=== PATIENT | male | born 1955 | race Caucasian/White ===

== ENCOUNTER 2016-07-31 10:19 | Emergency (ER) | payer MEDICARE, OTHER ==
[~2016-07-31] VITALS: Ht 175.3 cm; Wt 72.6 kg
[~2016-07-31 10:19] MED LIST: IBAN150T8 PO; SIMV20TA6 PO
--- NOTE | 2016-07-31 10:43 | NUR ---
mse completed, norco administered, pt then d/c'd home, aci rx x1, pt took all belongings and left on his electric wheelchair.
[2016-07-31 10:45] VITALS: BP 135/92
[2016-07-31] MEDS ORDERED: HYDROCODONE/APAP 10-325 MG TABLET PO ONE (10:45)
[2016-07-31] MEDS ORDERED: HYDROCODONE/APAP 10-325 MG TABLET ONE (10:47)
== END 2016-07-31 10:45 | disposition home or self-care (01) ==
LOC: ER 10:19
DX: S20.212A Contusion of left front wall of thorax, initial encounter (principal); S20.211A Contusion of right front wall of thorax, initial encounter; F10.20 Alcohol dependence, uncomplicated; X58.XXXA Exposure to other specified factors, initial encounter; Y93.89 Activity, other specified; Y99.8 Other external cause status; Y92.89 Other specified places as the place of occurrence of the external cause
CPT/HCPCS: 99283; A4663

== ENCOUNTER 2020-06-02 19:43 | Emergency (ER) | payer MEDICARE, OTHER ==
[~2020-06-02] VITALS: Ht 175.3 cm; Wt 72.6 kg
[~2020-06-02 19:43] MED LIST changes: +IBAN150T21 PO; -IBAN150T8 PO; +SIMV-46 PO; -SIMV20TA6 PO
--- NOTE | 2020-06-02 20:39 | NUR ---
PT WAS EVALUATED BY DR TAMEZ. PT WAS D/C'd TO HOME. D/C INSTRUCTIONS GIVEN TO THE PT BY DR TAMEZ.
[2020-06-02 20:41] VITALS: BP 135/79
== END 2020-06-02 20:42 | disposition home or self-care (01) ==
LOC: ER 19:45
DX: R59.0 Localized enlarged lymph nodes (principal); G11.4 Hereditary spastic paraplegia
CPT/HCPCS: A4663

== ENCOUNTER 2021-12-17 14:24 | Emergency (ER) | payer MEDICARE, OTHER ==
[~2021-12-17] VITALS: Ht 170.2 cm; Wt 63.5 kg
[2021-12-17 15:11] LABS: HEMATOCRIT 42.2 % (36.7-47.1); MEAN CORPUSCULAR VOLUME 89.6 fL (73.0-96.2); PLATELET COUNT (AUTO) 247 K/uL (152-348)
[2021-12-17] MEDS ORDERED: KETOROLAC TROMETHAMINE 15 MG INJ IVP ONE (15:15)
[2021-12-17 15:19] LABS: ALANINE AMINOTRANSFERASE 24 U/L (16-63); ALKALINE PHOSPHATASE 52 U/L (50-136); ASPARTATE AMINOTRANSFERASE 11 U/L (15-37); BILIRUBIN,DIRECT < 0.1 mg/dL (0.0-0.2); BILIRUBIN,TOTAL 0.4 mg/dL (0.2-1.0); CARBON DIOXIDE 30 mmol/L (21-32); CHLORIDE 103 mmol/L (98-107); CREATININE 0.9 mg/dL (0.6-1.3); GLUCOSE 123 mg/dL (74-106); LIPASE 86 U/L (73-393); TOTAL PROTEIN, SERUM 7.5 g/dL (6.4-8.2); UREA NITROGEN, BLOOD 17 mg/dL (7-18)
[2021-12-17] MEDS ORDERED: KETOROLAC TROMETHAMINE 15 MG INJ ONE (16:06)
--- NOTE | 2021-12-17 16:14 | NUR ---
Dr. Lopez says ok to give IM for toradol 15 mg.
[2021-12-17 16:22] LABS: *BILIRUBIN,URIN NEGATIVE (NEGATIVE); *BLOOD, URINE NEGATIVE (NEGATIVE); *COLOR,URINE YELLOW (YELLOW); *KETONES,URINE NEGATIVE (NEGATIVE); *UROBILINOGEN,URINE 0.2 E.U./dl (NORMAL); LEUKOCYTE ESTERASE ,URINE NEGATIVE (NEGATIVE); NITRITE, URINE NEGATIVE (NEGATIVE); UGLUCOSE NEGATIVE (NEGATIVE)
[2021-12-17 16:24] LABS: *CLARITY,URINE SLIGHTLY HAZY (CLEAR)
[2021-12-17 16:39] LABS: BACTERIA,URINE NONE SEEN /HPF (NONE SEEN); RBC,URINE NONE SEEN /HPF (0-3); SQUAMOUS EPITHELIAL CELL,UR FEW /HPF (NONE SEEN); URINE AMORPHOUS URATE MODERATE /HPF; WBC,URINE 0-3 /HPF (0-3)
[2021-12-17 17:16] VITALS: BP 126/74
== END 2021-12-17 17:17 | disposition home or self-care (01) ==
LOC: ER 14:24
DX: R10.9 Unspecified abdominal pain (principal); M54.9 Dorsalgia, unspecified; G11.4 Hereditary spastic paraplegia; Z99.3 Dependence on wheelchair; I10 Essential (primary) hypertension
CPT/HCPCS: 99284; 96374; 71045; 80076; 80048; 81001; 83690; 85025; 87086; 36415; J1885; A4663

== ENCOUNTER 2022-05-16 16:04 | Emergency (ER) | payer MEDICARE, OTHER ==
[~2022-05-16] VITALS: Ht 177.8 cm; Wt 72.6 kg
[2022-05-16] MEDS ORDERED: IV NORMAL SALINE 1000 ML BAG IV ONE (16:30)
[2022-05-16 16:33] LABS: HEMATOCRIT 42.5 % (36.7-47.1); MEAN CORPUSCULAR HEMOGLOBIN 30.7 uug (23.8-33.4); MEAN CORPUSCULAR VOLUME 89.5 fL (73.0-96.2); PLATELET COUNT (AUTO) 268 K/uL (152-348)
[2022-05-16 16:35] LABS: *BILIRUBIN,URIN NEGATIVE (NEGATIVE); *BLOOD, URINE NEGATIVE (NEGATIVE); *CLARITY,URINE CLEAR (CLEAR); *COLOR,URINE YELLOW (YELLOW); *KETONES,URINE NEGATIVE (NEGATIVE); *UROBILINOGEN,URINE 0.2 E.U./dl (NORMAL); LEUKOCYTE ESTERASE ,URINE NEGATIVE (NEGATIVE); NITRITE, URINE NEGATIVE (NEGATIVE); PH,URINE 7.5 (5.0-8.0); UGLUCOSE NEGATIVE (NEGATIVE)
--- NOTE | 2022-05-16 16:38 | NUR ---
1st contact with patient:AOx4, calm and breathing easily, NAD, c/o 2 week R flank pains, blood & urine results are pending, for CT scan at this time.
[2022-05-16 16:48] LABS: CREATININE 0.7 mg/dL (0.6-1.3); POTASSIUM 4.1 mmol/L (3.5-5.1)
[2022-05-16 16:54] LABS: BILIRUBIN,DIRECT 0.1 mg/dL (0.0-0.2); BILIRUBIN,TOTAL 0.4 mg/dL (0.2-1.0); TOTAL PROTEIN, SERUM 8.3 g/dL (6.4-8.2)
[2022-05-16] MEDS ORDERED: HYDROCODONE/APAP 5-325MG TABLET ONE (17:51)
[2022-05-16] MEDS ORDERED: HYDROCODONE/APAP 5-325MG TABLET PO ONE (18:00)
--- NOTE | 2022-05-16 18:02 | NUR ---
IV removed. Catheter intact and site benign. Pressure and 4x4 gauze applied to site. No bleeding noted. Patient discharged to home in stable condition using his own electric wheelchair. Written and verbal after care instructions given. Patient verbalized understanding and compliance of instructions. Stressed follow up with primary doctor or return to ER for worsening s/s.
[2022-05-16 18:03] VITALS: BP 120/71
== END 2022-05-16 17:54 | disposition home or self-care (01) ==
LOC: ER 16:04
DX: R10.9 Unspecified abdominal pain (principal); I70.0 Atherosclerosis of aorta; I77.811 Abdominal aortic ectasia; G11.4 Hereditary spastic paraplegia; R03.0 Elevated blood-pressure reading, without diagnosis of hypertension
CPT/HCPCS: 99284; 74176; 96360; 80076; 80048; 81003; 83690; 85025; 36415; J7040; A4663

== ENCOUNTER 2022-12-29 09:51 | Emergency (ER) | payer MEDICARE, OTHER ==
[~2022-12-29] VITALS: Ht 177.8 cm; Wt 72.6 kg
[2022-12-29 11:03] VITALS: BP 135/85; O2SAT 100
== END 2022-12-29 11:03 | disposition home or self-care (01) ==
LOC: ER 09:51
DX: S93.401A Sprain of unspecified ligament of right ankle, initial encounter (principal); G11.4 Hereditary spastic paraplegia; Z90.49 Acquired absence of other specified parts of digestive tract; Z79.899 Other long term (current) drug therapy; W01.0XXA Fall on same level from slipping, tripping and stumbling without subsequent striking against object, initial encounter; Y93.89 Activity, other specified; Y92.89 Other specified places as the place of occurrence of the external cause; Y99.8 Other external cause status
CPT/HCPCS: 73590; 73630; A4663; C1758

== ENCOUNTER 2024-09-12 10:44 | Emergency (ER) | payer MEDICARE, OTHER ==
[~2024-09-12] VITALS: Ht 177.8 cm; Wt 73.5 kg
[2024-09-12 12:23] VITALS: BP 126/80; O2SAT 97
== END 2024-09-12 12:28 | disposition home or self-care (01) ==
LOC: ER 10:44
DX: S42.402A Unspecified fracture of lower end of left humerus, initial encounter for closed fracture (principal); Z88.7 Allergy status to serum and vaccine; Z90.49 Acquired absence of other specified parts of digestive tract; W22.09XA Striking against other stationary object, initial encounter; Y93.89 Activity, other specified; Y92.89 Other specified places as the place of occurrence of the external cause; Y99.8 Other external cause status
CPT/HCPCS: 73070; A4606; A4663

== ENCOUNTER 2024-11-28 17:29 | Emergency (ER) | payer MEDICARE, OTHER ==
[~2024-11-28] VITALS: Ht 177.8 cm; Wt 74.4 kg
[2024-11-28] MEDS ORDERED: ACETAMINOPHEN 500 MG TABLET ONE (19:25)
[2024-11-28] MEDS: ACETAMINOPHEN 500 MG TABLET PO ONE (19:30)
[2024-11-28 20:01] VITALS: BP 127/60
[2024-11-28] MEDS: IV NORMAL SALINE 1000 ML BAG IV ONE (20:05)
[2024-11-28 20:12] LABS: PLATELET COUNT (AUTO) 197 K/uL (152-348); RED BLOOD CELL COUNT(AUTO) 4.96 MIL/uL (4.06-5.63); RED CELL DISTRIBUTION WIDTH 13.8 % (12.1-16.2); WHITE BLOOD COUNT (AUTO) 8.8 K/uL (3.6-10.2)
[2024-11-28 20:21] LABS: CREATININE 0.8 mg/dL (0.6-1.3); SODIUM SERUM 135 mmol/L (136-145); UREA NITROGEN, BLOOD 15 mg/dL (7-18)
[2024-11-28 20:26] LABS: ASPARTATE AMINOTRANSFERASE 16 U/L (15-37); TOTAL PROTEIN, SERUM 7.7 g/dL (6.4-8.2)
[2024-11-28 20:29] LABS: CREATINE KINASE, TOTAL 60.0 U/L (39-308)
[2024-11-28 20:36] LABS: LACTATE DEHYDROGENASE 123.0 U/L (85-227)
[2024-11-28] MEDS ORDERED: NIRM1TAB PO (21:11)
[2024-11-28 21:25] VITALS: BP 125/59; TEMP 98.3; O2SAT 96
== END 2024-11-28 21:25 | disposition home or self-care (01) ==
LOC: ER 18:05
DX: U07.1 COVID-19 (principal); R07.9 Chest pain, unspecified; G11.4 Hereditary spastic paraplegia; Z88.7 Allergy status to serum and vaccine; Z90.49 Acquired absence of other specified parts of digestive tract; Z87.39 Personal history of other diseases of the musculoskeletal system and connective tissue
CPT/HCPCS: 99285; 71045; 87426; 87804 ×2; 80076; 80048; 82550; 82728; 83880; 83615; 85025; 84145; 85379; 85730; 86140; 87040; 84484; 36415; 93005; 83605; J7040; A4606; A4663; A9150